=== PATIENT | male | born 2000 | race African-American/Black ===

== ENCOUNTER 2020-10-21 14:15 | Emergency (ER) | payer MEDICAID ==
[~2020-10-21] VITALS: Ht 170.2 cm; Wt 53.2 kg
[2020-10-21 14:26] VITALS: BP 119/78; Ht 170.2 cm; Wt 53.2 kg
== END 2020-10-21 21:40 | disposition home or self-care (01) ==
LOC: D.ER 14:15
DX: M25.552 Pain in left hip (principal); M79.605 Pain in left leg